=== PATIENT | male | born 1955 | race Caucasian/White ===

== ENCOUNTER 2020-03-10 16:49 | Emergency (ER) | payer OTHER, MEDICAID ==
[~2020-03-10] VITALS: Ht 167.6 cm; Wt 86.6 kg
--- NOTE | 2020-03-10 17:46 | NUR ---
PT IN [facility]OSPITAL GOWN. PT ON [facility] PER[employer] ON. ATTEMPTING TO GET EKG AT THIS TIME. VITALS MONITORS ON. WILL CONTINUE TO MONITOR.
[2020-03-10 17:55] LABS: BASOPHILS % (AUTO) 1 % (0-1); EOSINOPHILS % (AUTO) 3 % (1-7); LYMPHOCYTES % (AUTO) 35 % (22-44); MEAN CORPUSCULAR HEMOGLOBIN 34.7 pg (27.5-34.5); MEAN CORPUSCULAR HGB CONC 33.8 g/dL (33.2-36.2); MONOCYTES % (AUTO) 9 % (2-9); NEUTROPHILS % (AUTO) 52 % (42-75); PLATELET COUNT 127 x10^3/uL (130-400); RED BLOOD COUNT 4.84 x10^6/uL (4.38-5.82)
[2020-03-10 17:59] LABS: ALBUMIN 3.7 g/dL (3.4-5.0); ANION GAP 9 mmol/L (5-15); CALCIUM 8.6 mg/dL (8.5-10.1); CHLORIDE 100 mmol/L (98-107); CREATININE 0.68 mg/dL (0.7-1.3)
[2020-03-10 18:02] LABS: TROPONIN I < 0.015 ng/mL (0.000-0.045)
[2020-03-10 18:04] LABS: MD NO
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
[2020-03-10] MEDS ORDERED: POTASSIUM CHLORIDE 20 MEQ TAB.ER.PRT PO ONE (20:00)
[2020-03-10] MEDS ORDERED: POTASSIUM CHLORIDE 20 MEQ TAB.ER.PRT ONE (20:03)
[2020-03-10 20:10] VITALS: BP 127/84
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
--- NOTE | 2020-03-10 20:20 | NUR ---
PER DR. RADHA BATES TO D/C PT.
== END 2020-03-10 20:21 | disposition home or self-care (01) ==
LOC: ED 18:10
DX: R55 Syncope and collapse (principal); M54.5 Low back pain; E87.6 Hypokalemia; R42 Dizziness and giddiness; F17.210 Nicotine dependence, cigarettes, uncomplicated; R07.9 Chest pain, unspecified; I10 Essential (primary) hypertension; E03.9 Hypothyroidism, unspecified; I48.92 Unspecified atrial flutter
CPT/HCPCS: 36415; 71045; 80048; 82040; 83880; 84484; 85025; 93005; 99283; 99406